=== PATIENT | female | born 1950 | race Caucasian/White ===

== ENCOUNTER 2018-04-14 14:48 | Emergency (ER) | payer OTHER ==
[2018-04-14 14:55] VITALS: BP 112/97; TEMP 99.1; BMI 29.2
[2018-04-14] MEDS ORDERED: TORADOL IM STA (15:22)
[2018-04-14] MEDS ORDERED: NORFLEX IM STA (15:22)
--- NOTE | 2018-04-14 15:48 | CT ---
EXAM: CT scan of the head without contrast HISTORY: Headache TECHNIQUE: Helical imaging of the head was performed without contrast. 5 mm thin axial images and c oronal and sagittal images were provided for interpretation. Comparison none. FINDINGS: The lateral ventricles and cortical sulci are normal. Low density changes are seen within the supratentorial white matter. No acute hemorrhages are seen. There is no mass effect. There ar e no extraaxial collections. The basal cisterns are patent. The paranasal sinuses and mastoid air c ells are clear. The calvarium and extracranial soft tissues are normal. IMPRESSION: No acute intracranial abnormalities are seen. Chronic small vessel ischemic changes seen within the supratentorial white matter.
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
== END 2018-04-14 16:33 | disposition home or self-care (01) ==
LOC: ED 14:48
DX: S16.1XXA Strain of muscle, fascia and tendon at neck level, initial encounter (principal); S29.9XXA Unspecified injury of thorax, initial encounter; G44.319 Acute post-traumatic headache, not intractable; V89.2XXA Person injured in unspecified motor-vehicle accident, traffic, initial encounter; M25.511 Pain in right shoulder
CPT/HCPCS: 96372; 99283